=== PATIENT | male | born 1980 | race Caucasian/White ===

== ENCOUNTER 2023-02-09 10:02 | Outpatient (CLI) | payer BC, SELFPAY ==
[2023-02-09 12:54] LABS: D-Dimer 281 ng/mlFEU (<500)
== END 2023-02-09 10:03 | disposition home or self-care (01) ==
LOC: LOS 10:04
PROVIDERS: Visit Provider Nurse Practitioner Family
DX: U07.1 COVID-19 (principal)
CPT/HCPCS: 36415; 85379

== ENCOUNTER 2023-03-24 18:06 | Outpatient (CLI) | payer BC, SELFPAY ==
[2023-03-24 16:24] LABS: HCT 41.7 % (40.0-50.0); HGB 14.2 g/dL (13.5-17.5); MCH 29.9 pg (27.0-33.0); MCHC 34.1 % (32.0-36.0); MCV 88 fL (80-95); MPV 9.8 fL (8.0-11.0); Platelet Count 243 10^3/uL (130-400); RBC 4.75 10^6/uL (4.36-5.78); RDW 12.6 % (11.8-14.1); RDW-SD 40.5 fL; WBC 6.72 10^3/uL (4.4-10.8)
[2023-03-24 16:55] LABS: D-Dimer 170 ng/mlFEU (<500)
[2023-03-24 17:09] LABS: Anion Gap 4.7 mmol/L (3-11); BUN 14 mg/dL (7-18); CO2 33.3 mmol/L (21.0-32.0); Calcium 9.3 mg/dL (8.5-10.1); Chloride 107 mmol/L (98-107); Estimated GFR 96.97 (mL/min/1.73m2); Glucose 98 mg/dL (74-106); Potassium 3.8 mmol/L (3.5-5.1); Sodium 145 mmol/L (136-145)
== END 2023-03-24 18:07 | disposition home or self-care (01) ==
LOC: LBO 18:06
PROVIDERS: Visit Provider Nurse Practitioner Family
DX: R05.9 Cough, unspecified (principal)
CPT/HCPCS: 36415; 80048; 85027; 85379

== ENCOUNTER → 2023-03-24 18:10 | Outpatient (CLI) | payer BC, SELFPAY ==
--- NOTE | 2023-03-24 16:00 | DI.RAD_ITS ---
Exam(s) XR CHEST 2V PA LATERAL EXAM: XR CHEST 2V PA LATERAL CLINICAL HISTORY: evaluate pathology COUGH R05.9. TECHNIQUE: 2D digital imaging was performed. COMPARISON: CR CHEST 2 VIEWS PA,LAT from 10/13/2011 FINDINGS: 2 views: Heart size is normal. The mediastinum is not widened. Lungs are clear. No infiltrates nor pleural effusions. IMPRESSION: No acute pulmonary findings. DATA REPOSITORY: RADIATION DOSE DELIVERED:
== END ==
PROVIDERS: Visit Provider Nurse Practitioner Family
DX: R05.9 Cough, unspecified (principal)
CPT/HCPCS: 71046

== ENCOUNTER 2024-04-14 11:10 | Outpatient (REF) | payer BC, SELFPAY ==
[2024-04-14 15:43] LABS: HCT 43.5 % (40.0-50.0); HGB 14.8 g/dL (13.5-17.5); MCV 88 fL (80-95); MPV 10.9 fL (8.0-11.0); Platelet Count 208 10^3/uL (130-400); RBC 4.93 10^6/uL (4.36-5.78); RDW 12.5 % (11.8-14.1); RDW-SD 40.3 fL
[2024-04-14 15:53] LABS: ESR < 1 mm/hr (0-15)
[2024-04-14 16:02] LABS: ALT 30 U/L (16-63); AST 16 U/L (15-37); Albumin 3.9 g/dL (3.4-5.0); Alkaline Phosphatase 59 U/L (46-116); Anion Gap 4.9 mmol/L (3-11); BUN 12 mg/dL (7-18); CO2 32.1 mmol/L (21.0-32.0); Calcium 8.9 mg/dL (8.5-10.1); Chloride 107 mmol/L (98-107); Estimated GFR 96.37 (mL/min/1.73m2); Glucose 78 mg/dL (74-106); Potassium 4.2 mmol/L (3.5-5.1); Sodium 144 mmol/L (136-145); TSH (W/Ref FT4) 0.61 uIU/mL (0.36-3.74); Total Protein 6.6 g/dL (6.4-8.2)
[2024-04-14 16:03] LABS: C-Reactive Protein < 0.50 mg/dL (<or=0.5)
[2024-04-14 16:23] LABS: Calculated LDL 79 mg/dL (<100); Cholesterol 143 mg/dL (<200); HDL Cholesterol 56 mg/dL (40-60); Triglyceride 43 mg/dL (<150)
[2024-04-16 10:03] LABS: Lyme Ab w Rflx to Lyme Confirm Negative (Negative)
[2024-04-16 14:11] LABS: ANA Interpretation Negative (Negative)
== END 2024-04-14 11:11 | disposition home or self-care (01) ==
LOC: LBN 11:10
PROVIDERS: PCP Nurse Practitioner Family; Visit Provider Nurse Practitioner Family
DX: E80.4 Gilbert syndrome; R53.83 Other fatigue; I73.00 Raynaud's syndrome without gangrene; Z13.220 Encounter for screening for lipoid disorders
CPT/HCPCS: 80053; 80061; 85027; 85652; 84443; 86038; 86140; 86618

== ENCOUNTER → 2025-02-14 15:00 | Outpatient (CLI) | payer BC, SELFPAY ==
--- NOTE | 2025-02-14 14:15 | DI.RAD_ITS ---
Exam(s) XR CERVICAL SPINE COMP 4-5V EXAM: XR CERVICAL SPINE COMP 4-5V CLINICAL HISTORY: neck pain, new daily persistent headache, G44.52. TECHNIQUE: 2D digital imaging was performed. COMPARISON: No exams were available for comparison FINDINGS: Five views No evidence of fracture, listhesis, nor offset of the spinal laminar line. All of the disc spaces exhibit normal height and there are no cervical ribs. There are tiny bilateral Luschka joint osteophytes at C 5-6 level. No prominent osseous foraminal stenosis evident. Bone density normal. No osseous lesions. There is no prevertebral soft tissue swelling. IMPRESSION: Minimal findings as above. DATA REPOSITORY: RADIATION DOSE DELIVERED:
== END ==
LOC: DI 15:00
PROVIDERS: PCP Nurse Practitioner Family; Visit Provider Nurse Practitioner Family
DX: G44.52 New daily persistent headache (NDPH) (principal)
CPT/HCPCS: 72050